=== PATIENT | female | born 1965 | race Caucasian/White ===

== ENCOUNTER 2020-04-30 12:06 | Emergency (ER) | payer OTHER ==
[~2020-04-30] VITALS: Ht 162.6 cm; Wt 52.6 kg
[~2020-04-30 12:06] MED LIST: CYCLOBENZAPRINE10 MG PO; DICLOFENAC SOD50 M1 PO; DICLOFENAC SODI75 M1 PO; FLEXERIL PO; FOSAMAX 70 MG T70 M1 PO; IMITREX100 MG; LEVOTHYROXIN0.125 M1 PO; MULTIVITAMINS1 EAC7; PROTONIX 20 MG20 M1 PO; PROTONIX40 MG PO; SIMVASTATIN10 MG PO; SYNTHROID75 MCG PO; TOPAMAX 100 MG100 MG PO; VITAMINC500 PO
[2020-04-30 13:21] LABS: ABSOLUTE NEUTROPHILS 7.2 thou/uL (1.4-8.2); BASOPHILS 1.1 % (0.0-2.0); EOSINOPHILS 3.2 % (0.0-3.0); HEMATOCRIT 42.9 % (37.0-47.0); HEMOGLOBIN 14.7 gm/dL (12.0-15.0); LYMPHOCYTES 21.4 % (24.0-44.0); MCHC 34.4 g/dL (28.0-37.0); MCV 101.9 fL (80.0-100.0); MONOCYTES 5.5 % (1.0-8.0); PLATELET COUNT 294 thou/uL (150-400); POLYS 68.8 % (36.0-66.0); RBC 4.21 mil/uL (4.20-5.00); RDW 13.1 % (10.5-14.5); WBC 10.5 thou/uL (4.0-11.0)
[2020-04-30 13:29] LABS: ANION GAP 6 mmol/L (7-16); BUN 17 mg/dL (7-18); CALCIUM 8.4 mg/dL (8.5-10.1); CHLORIDE 109 mmol/L (98-107); CO2 27 mmol/L (21-32); CREATININE 0.8 mg/dL (0.6-1.0); GLUCOSE 54 mg/dL (74-106); POTASSIUM 3.2 mmol/L (3.5-5.1); SODIUM 142 mmol/L (136-145)
[2020-04-30 13:39] LABS: ALBUMIN 3.4 g/dL (3.4-5.0); SGOT 24 U/L (15-37); SGPT 29 U/L (30-65); TOTAL BILIRUBIN 0.2 mg/dL (0.2-1.0); TOTAL PROTEIN 6.4 g/dL (6.4-8.2); TROPONIN-I <0.06 ng/mL (<0.06)
[2020-04-30] MEDS ORDERED: TRAMADOL 50 MG50 MG PO (13:42)
[2020-04-30] MEDS ORDERED: NORCO 5-325 TA1 EAC1 PO (14:36)
[2020-04-30] MEDS ORDERED: POTASSIUM20 PO (14:38)
[2020-04-30 14:50] VITALS: BP 140/83
--- NOTE | 2020-05-01 08:05 | EKG ---
[facility] [place] [address] ELECTROCARDIOGRAM REPORT Name: DARELL ONEIL Room #: [facility]#: [id number] Admission: 04/30/20 Attend Phys: Discharge: 04/30/20 Date of : 67 Report #: [id number] THIS REPORT FOR: cc: Medhat Mon MD, John J. MD Lundgren,Juan M Hutchins MD LOCATED WITHIN [facility] ~ THIS REPORT FOR: //name// [facility] ED Test Date: 2020-04-30 Test Time: 12:48:34 Pat Name: DARELL ONEIL Department: Room: Gender: F Director [employer]: [facility] [employer] [facility] : 1965 Requested By: Daniela Wakefield Order Number: [id number] MD: Juan M Maher Measurements Intervals [place] Rate: 79 P: 84 SC: 148 QRS: 76 QRSD: 102 T: 50 QT: 380 QTc: 436 Interpretive Statements Sinus rhythm Nonspecific ST segment abnormality Compared to ECG 01/08/2012 11:42:[address] segment changes Electronically Signed On 05-01-2020 8:05:24 CDT by Juan M Maher [email or web address] <ELECTRONICALLY SIGNED> By: Juan M Maher MD, LOCATED [facility]IN [facility] 05/01/20 0805 [id number] Juan M Maher MD, LOCATED [facility]IN [facility] /EPI
== END 2020-04-30 14:56 | disposition home or self-care (01) ==
LOC: ER 12:06
PROVIDERS: Physician Assistant
DX: S09.90XA Unspecified injury of head, initial encounter (principal); M54.5 Low back pain; R55 Syncope and collapse; E87.6 Hypokalemia; E78.5 Hyperlipidemia, unspecified; Z90.710 Acquired absence of both cervix and uterus; Z90.89 Acquired absence of other organs; Z79.899 Other long term (current) drug therapy; Z88.1 Allergy status to other antibiotic agents; W18.39XA Other fall on same level, initial encounter; Y93.89 Activity, other specified; Y92.89 Other specified places as the place of occurrence of the external cause; Y99.8 Other external cause status